=== PATIENT | female | born 1960 | race Caucasian/White ===

== ENCOUNTER 2020-10-07 16:05 | Outpatient (CLI) | payer BC, SELFPAY ==
--- NOTE | ~2020-10-07 | MM_ITS ---
EXAMINATION: MM screening [facility] BI w gabino HISTORY: Screening mammogram TECHNIQUE: Craniocaudal and mediolateral oblique 3-D tomosynthesis images were obtained and synthetic 2-D images were generated. CAD analysis was submitted and interpreted. COMPARISON: 09/04/2018, 08/23/2013, 06/08/2011 BREAST PARENCHYMAL COMPOSITION: There are scattered areas of fibroglandular density. FINDINGS: There is no evidence of suspicious mass, calcification, or architectural distortion to sugg est malignancy in either breast. There has been no suspicious interval change. IMPRESSION: 1. No mammographic evidence of malignancy. 2. Recommend routine screening mammography in one year. BI-RADS Category 1: Negative Reviewed, dictated and finalized at location A.
== END 2020-10-07 16:06 | disposition home or self-care (01) ==
LOC: ANHIMG 16:07
PROVIDERS: PCP Family Medicine; Visit Provider Family Medicine
DX: Z12.31 Encounter for screening mammogram for malignant neoplasm of breast (principal)
CPT/HCPCS: 77063; 77067

== ENCOUNTER 2022-01-11 01:41 | Day surgery (SDC) | payer BC, SELFPAY ==
[2021-12-24 14:51] VITALS: BMI 36.3
[2022-01-11 06:13] VITALS: BP 136/82; PULSE 77; RESP 18; TEMP 36.2; O2SAT 96
[2022-01-11] MEDS: LACTATED RINGERS 1,000 ML 150 ML IV CONT (06:16)
--- NOTE | 2022-01-11 07:22 | P.PNAN_ITS ---
Anes - Initial Pre Proc Eval Procedure: Operation Date: 01/11/22 07:30 Proposed Procedures p Screening Colonoscopy - Janak Lam MD Date/Time: 01/11/22 07:22 Surgeon: Janak Lam MD Pre Op Diagnosis: hx colon polyps Patient Data Age: 61 Gender: F Height: 1.57 m Weight: 87.4 kg Last Vital Signs Temp 97.2 F L 01/11/22 06:13 Pulse 77 01/11/22 06:13 Resp 18 01/11/22 06:13 BP 136/82 01/11/22 06:13 Pulse Ox 96 01/11/22 06:13 O2 Del Method Room Air 01/11/22 06:13 Allergies Allergy/AdvReac Type Severity Reaction Status Date / Time No Known Allergies Allergy Verified 01/11/22 06:12 Home Medications Medication Instructions Recorded Confirmed Type aspirin 81 mg tablet,delayed 81 mg PO DAILY 04/03/19 01/11/22 History release (Adult Low Dose Aspirin) simvastatin 20 mg tablet 20 mg PO DAILY #90 tabs 06/17/21 01/11/22 Rx lisinopril 20 1 tablet PO DAILY 12/24/21 01/11/22 History mg-hydrochlorothiazide 12.5 mg tablet Patient hx anesthesia problems: none Family hx anesthesia problems: none Results Review: All pre-operative results and documents have been reviewed as part of the pre- operative evaluation. [facility] Past Medical History Medical History (Updated 12/27/21 @ 09:35 by Santos Burton PA-C) BCC (basal cell carcinoma of skin) High cholesterol History of skin cancer Hypertension Nicotine dependence, unspecified, in remission Surgical History Surgical History History of History of tubal ligation History of vaginal surgery Family History Family History Father Diabetes mellitus Cerebrovascular accident, Onset Age: 70 Alcoholism Mother Hypertension Family history of cardiovascular disease, Onset Age: 56 Lung cancer Grandparent Hypertension Carcinoma of colon Diabetes mellitus Heart disease Other Family history of glaucoma Social History Social History Smoking packs per day: 1 Smoking cigarettes per day: 20.0 Years smoked: 40 Smoking pack-years: 40.00 Smoking status: Current every day smoker Tobacco type: cigarettes Alcohol intake: current Drinks per week: 24 Substance use: current Substance use type: marijuana Last use: 2-3X week Living arrangements: with family Spiritual care concerns: No Anes - Eval Final PreProcedure Day of Procedure 01/11/22 07:22 Patient weight: obese Heart: regular rate and rhythm Lungs: clear to auscultation Airway: Mallampati scale class II Neurological: alert and oriented Last oral intake: >/= 8 hours ASA classification: III Emergent: no Anesthetic plan: proceed Anesthesia type and monitoring: general GIVS Results Review: All pre-operative results and documents have been reviewed as part of the pre- operative evaluation. Informed Consent: The patient's anesthetic plan and its attendant risks and benefits were discussed with the patient/family/POA. Questions were solicited and answers provided to the satisfaction of the patient/fami
--- NOTE | 2022-01-11 08:02 | PM.HPGS ---
History of Present Illness History of Present Illness Consent: Risks, benefits, and alternatives have been discussed and questions answered. Patient agrees to proceed with procedure. Chief complaint: hx colon polyps Narrative: [place] Vyas is a 61 year old female Presents for screening colonoscopy. Patient has a prior history of hyperplastic colon polyps in 2017 in 2011. Patient presents today for surveillance colonoscopy. She reports that her weight appetite and bowel movements are normal. Patient denies abdominal pain. She has had no bleeding. Family history noncontributory. Review of Systems Review of Systems: Review of systems noncontributory. [facility] Past Medical History Medical History (Updated 12/27/21 @ 09:35 by Santos Burton PA-C) BCC (basal cell carcinoma of skin) High cholesterol History of skin cancer Hypertension Nicotine dependence, unspecified, in remission Surgical History Surgical History History of History of tubal ligation History of vaginal surgery Family History Family History Father Diabetes mellitus Cerebrovascular accident, Onset Age: 70 Alcoholism Mother Hypertension Family history of cardiovascular disease, Onset Age: 56 Lung cancer Grandparent Hypertension Carcinoma of colon Diabetes mellitus Heart disease Other Family history of glaucoma Social History Social History Smoking packs per day: 1 Smoking cigarettes per day: 20.0 Years smoked: 40 Smoking pack-years: 40.00 Smoking status: Current every day smoker Tobacco type: cigarettes Alcohol intake: current Drinks per week: 24 Substance use: current Substance use type: marijuana Last use: 2-3X week Living arrangements: with family Spiritual care concerns: No Meds Home Medications and Allergies Home Medications Medication Instructions Recorded Confirmed Type aspirin 81 mg tablet,delayed 81 mg PO DAILY 04/03/19 01/11/22 History release (Adult Low Dose Aspirin) simvastatin 20 mg tablet 20 mg PO DAILY #90 tabs 06/17/21 01/11/22 Rx lisinopril 20 1 tablet PO DAILY 12/24/21 01/11/22 History mg-hydrochlorothiazide 12.5 mg tablet Allergies Allergy/AdvReac Type Severity Reaction Status Date / Time No Known Allergies Allergy Verified 01/11/22 06:12 Vital Signs Vital Signs - 24 hr 01/11/22 06:13 Temperature 97.2 F L Pulse Rate 77 Respiratory Rate 18 Blood Pressure 136/82 Pulse Oximetry 96 Oxygen Delivery Room Air Exam Narrative: Physical exam reveals patient to be alert. Vital signs stable. HEENT exam is unremarkable. Patient is anicteric. Lungs are clear to auscultation and percussion. Heart is without murmur or extra sounds. Abdomen Is obese. bowel sounds are present soft nontender with no organomegaly. Digital external rectal exam is normal. Assessment and Plan Assessment and plan (1) History of colon polyps: Code(s): Z86.010 - Personal history of colonic polyps Status: Acute Assessment and Plan: Patient has a history of a hyperplastic colon polyps in the past. Plan is for surveillance colonoscopy at this time. Further recommendations will be performed pending results of colonoscopy. (2) Obesity (BMI 30-39.9): Code(s): E66.9 - Obesity, unspecified Status: Acute Assessment and Plan: Weight loss with increased activity and calorie restriction or advised.
[2022-01-11 08:07] VITALS: BP 129/69; PULSE 70; RESP 24; O2SAT 96
[2022-01-11 08:17] VITALS: BP 138/78; PULSE 65; RESP 17; O2SAT 98
[2022-01-11 08:27] VITALS: BP 131/71; PULSE 63; RESP 20; O2SAT 99
== END 2022-01-11 08:38 | disposition home or self-care (01) ==
PROVIDERS: PCP Family Medicine; Visit Provider Internal Medicine Gastroenterology
PROC: 0DJD8ZZ Inspection of Lower Intestinal Tract, Via Natural or Artificial Opening Endoscopic (ICD-10-PCS; CPT 45378; principal; 2022-01-11 07:30)
DX: Z12.11 Encounter for screening for malignant neoplasm of colon (principal); K63.5 Polyp of colon; Z79.82 Long term (current) use of aspirin; E78.00 Pure hypercholesterolemia, unspecified; Z85.828 Personal history of other malignant neoplasm of skin; F17.210 Nicotine dependence, cigarettes, uncomplicated; F12.90 Cannabis use, unspecified, uncomplicated; E66.9 Obesity, unspecified; Z68.35 Body mass index [BMI] 35.0-35.9, adult
CPT/HCPCS: 45385; 88305; J2001; J2704; J7120

== ENCOUNTER 2022-02-08 09:41 | Outpatient (CLI) | payer BC, SELFPAY ==
--- NOTE | ~2022-02-08 | MM_ITS ---
EXAMINATION: MM screening [facility] w gabino HISTORY: Screening TECHNIQUE: Craniocaudal and mediolateral oblique 3-D tomosynthesis images were obtained and synthetic 2-D images were generated. CAD analysis was submitted and interpreted. COMPARISON: Comparison to multiple prior studies sequentially, with oldest reviewed study dated 08/23. BREAST PARENCHYMAL COMPOSITION: There are scattered areas of fibroglandular density. FINDINGS: There is a mass located centrally in the left breast, posterior third measuring 6 mm maximu m dimension. The left breast is stable without evidence for malignancy. IMPRESSION: 1. Right breast mass located centrally and posteriorly measuring 6 mm. 2. Additional spot compression and mediolateral views with possible follow-up breast ultrasound recom mended. BI-RADS Category 0: Incomplete: Needs additional imaging evaluation. Reviewed, dictated and finalized at location A. N PERFORATOR OPERATOR IMPRESSION: 1. Right breast mass located centrally and posteriorly measuring 6 mm. 2. Additional spot compression and mediolateral views with possible follow-up b reast ultrasound recommended. BI-RADS Category 0: Incomplete: Needs additional imaging evaluation.
== END 2022-02-08 09:42 | disposition home or self-care (01) ==
LOC: ANHIMG 09:41
PROVIDERS: PCP Family Medicine; Visit Provider Physician Assistant
DX: Z12.31 Encounter for screening mammogram for malignant neoplasm of breast (principal); R92.8 Other abnormal and inconclusive findings on diagnostic imaging of breast
CPT/HCPCS: 77063; 77067

== ENCOUNTER 2022-03-01 12:42 | Outpatient (CLI) | payer BC, SELFPAY ==
--- NOTE | ~2022-03-01 | MMUS_ITS ---
EXAMINATION: MM diagnostic [facility] RT w gabino, US breast RT limited HISTORY: Right breast mass on screening mammogram TECHNIQUE: Additional 3-D tomosynthesis images of the right breast were performed and synthetic 2-D i mages were generated. CAD analysis was submitted and interpreted. High resolution limited right breas t ultrasound was performed. COMPARISON: 02/06/2022, 10/07/2020, 09/04/2018 FINDINGS: MAMMOGRAPHIC FINDINGS: There is a 5 mm x 4 mm oval, circumscribed, low density mass in the posterior third of the central br east 9 cm from the nipple. No suspicious calcification or architectural distortion are identified. ULTRASOUND: There is no evidence of focal abnormal solid or cystic mass in the vicinity of the mammographic findi ng in question. IMPRESSION: 1. Probably benign right breast mass. 2. Recommend 6 month follow-up right diagnostic mammogram and possible ultrasound. BI-RADS category 3, probably benign findings. Reviewed, dictated and finalized at location A. LINING BINDER IMPRESSION: 1. Probably benign right breast mass. 2. Recommend 6 month follow-up right diagnostic mammogram and possible ultrasou nd. BI-RADS category 3, probably benign findings.
== END 2022-03-01 12:43 | disposition home or self-care (01) ==
LOC: ANHIMG 12:45
PROVIDERS: PCP Family Medicine; Visit Provider Physician Assistant
DX: R92.8 Other abnormal and inconclusive findings on diagnostic imaging of breast (principal)
CPT/HCPCS: 76642; 77061; 77065; G0279

== ENCOUNTER 2022-11-11 11:16 | Outpatient (CLI) | payer BC, SELFPAY ==
--- NOTE | ~2022-11-11 | MM_ITS ---
EXAMINATION: MM diagnostic [facility] RT w gabino HISTORY: Follow-up right breast mass TECHNIQUE: Additional 3-D tomosynthesis images of the right breast were performed and synthetic 2-D i mages were generated. CAD analysis was submitted and interpreted. COMPARISON: Comparison to multiple prior studies sequentially, with oldest reviewed study dated 08/23. BREAST PARENCHYMAL COMPOSITION: BREAST PARENCHYMAL COMPOSITION: There are scattered areas of fibroglandular density. FINDINGS: There is a benign-appearing circumscribed 5 mm mass in the central aspect of the right concepcion st with central lucency, most likely benign intramammary lymph node. No significant change from 2020 For technique. IMPRESSION: 1. Stable benign-appearing right breast mass. 2. Recommend 6 month follow-up diagnostic bilateral mammogram BI-RADS category 3, probably benign findings. Reviewed, dictated and finalized at location A.
== END 2022-11-11 11:17 | disposition home or self-care (01) ==
LOC: ANHIMG 11:17
PROVIDERS: PCP Family Medicine; Visit Provider Physician Assistant
DX: R92.8 Other abnormal and inconclusive findings on diagnostic imaging of breast (principal)
CPT/HCPCS: 77061; 77065; G0279

== ENCOUNTER 2023-07-20 12:26 | Outpatient (CLI) | payer BC, SELFPAY ==
--- NOTE | ~2023-07-20 | MM_ITS ---
EXAMINATION: MM diagnostic [facility] BI w gabino HISTORY: Six-month follow-up of benign-appearing circumscribed 5 mm mass in the central aspect of the right breast with central lucency, reported initially on 02/08/2022 screening mammogram TECHNIQUE: Bilateral full field ML, MLO and CC full field and left spot MLO and CC 3-D tomosynthesis images were performed and synthetic 2-D images were generated. CAD analysis was submitted and interpr eted. COMPARISON: 02/08/2022 bilateral screening mammogram 03/01/2022 diagnostic right mammogram and Limited right breast ultrasound examination 3diagnostic right mammogram BREAST PARENCHYMAL COMPOSITION: There are scattered areas of fibroglandular density. FINDINGS: The previously reported small circumscribed opacity in the posterior central right breast i s no longer present. No suspicious mass or architectural distortion, malignant calcification, skin thickening or retractio n or significant new or developing density is detected. IMPRESSION: 1. No mammographic evidence of malignancy; resolution of small low-density mass in posterior central right breast since prior examinations 2. Routine annual mammographic screening is recommended BI-RADS Category 1: Negative Reviewed, dictated and finalized at location A.
== END 2023-07-20 12:27 | disposition home or self-care (01) ==
LOC: ANHIMG 12:27
PROVIDERS: PCP Family Medicine; Visit Provider Nurse Practitioner Family
DX: R92.8 Other abnormal and inconclusive findings on diagnostic imaging of breast (principal)
CPT/HCPCS: 77062; 77066; G0279

== ENCOUNTER 2025-01-13 10:09 | Outpatient (CLI) | payer BC, SELFPAY ==
--- NOTE | ~2025-01-13 | MM_ITS ---
EXAMINATION: MM screening [facility] BI w gabino HISTORY: Screening TECHNIQUE: Craniocaudal and mediolateral oblique 3-D tomosynthesis images were obtained and synthetic 2-D images were generated. CAD analysis was submitted and interpreted. COMPARISON: Comparison to multiple prior studies sequentially, with oldest reviewed study dated 09/04/2018. BREAST PARENCHYMAL COMPOSITION: Not Dense: The breasts are almost entirely fatty. FINDINGS: There is no evidence of suspicious mass, calcification, or architectural distortion to suggest malignancy in either breast. There has been no suspicious interval change. IMPRESSION: 1. No mammographic evidence of malignancy. 2. Recommend routine screening mammography in one year. BI-RADS Category 1: Negative Reviewed, dictated and finalized at location O.
== END 2025-01-13 10:10 | disposition home or self-care (01) ==
LOC: ANHFOHIMG 10:11
PROVIDERS: PCP Family Medicine; Visit Provider Nurse Practitioner Family
DX: Z12.31 Encounter for screening mammogram for malignant neoplasm of breast (principal)
CPT/HCPCS: 77063; 77067